=== PATIENT | female | born 1935 | race Asian ===

== ENCOUNTER 2021-06-18 13:52 | Emergency (ER) | payer MEDICARE, OTHER ==
[~2021-06-18] VITALS: Ht 152.4 cm; Wt 49.9 kg
[2021-06-18 14:00] VITALS: BP_SYST 156
--- NOTE | 2021-06-18 14:00 | NUR ---
PT WAITING ON GURNEY WITH EMS FOR ER BED.
--- NOTE | 2021-06-18 14:10 | NUR ---
PT BIBA C/O DIZZINESS AND N/V. PT DENIES EMESIS. SHE IS AMBULATORY, AAOX3, V/S STABLE UPON ARRIVAL
[2021-06-18] MEDS ORDERED: MECLIZINE HCL 25 MG TABLET (ANITVERT) PO ONE (14:15)
[2021-06-18] MEDS ORDERED: METOCLOPRAMIDE HCL 10 MG/2 ML VIAL IVP ONE (14:15)
[2021-06-18] MEDS ORDERED: METO25TA6 PO (14:32)
[2021-06-18] MEDS ORDERED: OMEP20CA15 PO (14:32)
[2021-06-18] MEDS ORDERED: ASA81 PO (14:32)
[2021-06-18] MEDS ORDERED: LIP40 PO (14:32)
[2021-06-18] MEDS ORDERED: POTA10TA PO (14:32)
[2021-06-18] MEDS ORDERED: LOSA25TA3 PO (14:32)
[2021-06-18] MEDS ORDERED: GLIP10TA11 PO (14:32)
--- NOTE | 2021-06-18 15:00 | NUR ---
Placed in room 3 . Placed on cardiac tech, blood pressure machine and pulse oximeter. To gown for exam. Side rails up.
--- NOTE | 2021-06-18 15:19 | NUR ---
PT AMBULTATES TO BATHROOM WITH STEADY GAIT
[2021-06-18 15:25] LABS: BASOPHILS % (AUTO) 0.3 % (0.0-2.0); EOSINOPHILS % (AUTO) 0.3 % (0.0-4.0); HEMATOCRIT 36.5 % (36-48); HEMOGLOBIN 12.1 g/dL (12.0-16.0); LYMPHOCYTES # (AUTO) 0.8 K/uL (1.0-5.5); LYMPHOCYTES % (AUTO) 11.5 % (20.5-51.5); MEAN CORPUSCULAR HEMOGLOBIN 30 pg (27-31); MEAN CORPUSCULAR HGB CONC 33 % (32-36); MEAN CORPUSCULAR VOLUME 91 fL (79.0-98.0); MONOCYTES # (AUTO) 0.4 K/uL (0.0-1.0); MONOCYTES % (AUTO) 6.4 % (1.7-9.3); NEUTROPHILS # (AUTO) 5.7 K/uL (1.8-7.7); NEUTROPHILS % (AUTO) 81.5 % (40.0-70.0); PLATELET COUNT (AUTO) 336 K/uL (130-430); RED BLOOD CELL COUNT(AUTO) 4.01 MIL/uL (4.2-6.2); RED CELL DISTRIBUTION WIDTH 14.9 % (9.0-15.0)
[2021-06-18 15:32] LABS: ANION GAP 9 (5-15); CALCIUM 9.4 mg/dL (8.4-11.0); CHLORIDE 102 mmol/L (98-107); CREATININE 1.03 mg/dL (0.55-1.30); GLUCOSE 112 mg/dL (70-99); POTASSIUM 4.2 mmol/L (3.5-5.1); SODIUM SERUM 140 mmol/L (136-145); UREA NITROGEN, BLOOD 14 mg/dL (8-21)
[2021-06-18 15:37] LABS: PROTHROMBIN TIME 10.5 SECS (9.5-12.5)
[2021-06-18 15:38] LABS: ALANINE AMINOTRANSFERASE 17 U/L (12-78); ALBUMIN 3.6 g/dL (3.4-4.8); ASPARTATE AMINOTRANSFERASE 11 U/L (10-37); TOTAL BILIRUBIN 0.5 mg/dL (0.0-1.0)
--- NOTE | 2021-06-18 17:00 | NUR ---
PT RESTING IN BED NO S/SX OF DISTRESS
[2021-06-18] MEDS ORDERED: MECL-103 PO (18:28)
[2021-06-18 18:40] VITALS: BP_SYST 156
--- NOTE | 2021-06-18 18:40 | NUR ---
Patient given written and verbal discharge instructions and verbalizes understanding. ER MD discussed with patient the results and treatment provided. Patient in stable condition. ID arm band removed. IV catheter removed intact and dressing applied, no active bleeding. Rx of MECLIZINE given. Patient educated on pain management and to follow up with PMD. Pain Scale 0/10. Opportunity for questions provided and answered. Medication side effect fact sheet provided.
== END 2021-06-18 18:40 | disposition home or self-care (01) ==
LOC: SED 13:52
DX: R42 Dizziness and giddiness (principal); Z79.82 Long term (current) use of aspirin; Z79.899 Other long term (current) drug therapy
CPT/HCPCS: 36415; 70450; 71045; 76376; 80053; 84484; 85025; 85610; 85730; 93005; 96374; 99285; J2765; J8597